=== PATIENT | male | born 1980 | race Caucasian/White ===

== ENCOUNTER 2020-11-10 01:06 | Emergency (ER) | payer SELFPAY ==
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
== END 2020-11-10 01:27 ==
LOC: MW.ED 01:06
DX: S00.01XA Abrasion of scalp, initial encounter (principal); S50.311A Abrasion of right elbow, initial encounter; Y04.0XXA Assault by unarmed brawl or fight, initial encounter
CPT/HCPCS: 99282